=== PATIENT | male | born 1965 | race Caucasian/White ===

== ENCOUNTER 2018-08-27 02:48 | Observation (INO) ==
[2018-08-27] MEDS ORDERED: *HR* FentaNYL (PF) 100 MCG/2 ML VIAL IVP ONE ×2 (02:59→03:22)
[2018-08-27] MEDS ORDERED: Ondansetron 4 MG/2 ML VIAL IVP ONE (03:23)
--- NOTE | 2018-08-27 03:39 | Emergency Department Note ---
Disposition Clinical Impression: Abdominal pain Qualifiers: Abdominal location: lower abdomen, unspecified Qualified Code(s): R10.30 - Lower abdominal pain, unspecified Disposition: Home, Self-Care Condition: Good Referrals: NONE,PCP [Primary Care Provider] - Forms: ED Satisfaction Letter, Work/School Release Time of Disposition: 06:50 General Adult HPI - General Stated complaint: abd pain Time Seen by Provider: 08/27/18 02:56 Source: patient Limitations: no limitations Nursing Notes Reviewed: Yes Vital Signs Reviewed: Yes - History of Present Illness HPI Narrative: 53-year-old male presents with concern abdominal pain, followed by cp and sob. He mentions he has been having some worsening of his chronic abdominal pain. He states he has not had a bowel movement since yesterday. As he was on the toilet trying to have a bowel movement when he started to have some shortness of breath and chest pain which prompted him to call the squad to come to the emergency department. He does describe having a bowel obstruction in the past followed by having an NG tube. Does mention that he has been nauseous and has been dry heaving denies any vomiting. He denies any fever, recent illness, urinary symptoms. Pain Scale: 10 - Related Data Home Medications Medication Instructions Recorded Confirmed Gabapentin [Neurontin] 600 mg PO BID PRN 08/27/18 08/27/18 Tamsulosin HCl [Flomax] 0.4 mg PO DAILY 08/27/18 08/27/18 Valsartan [Diovan] 160 mg PO DAILY 08/27/18 08/27/18 Allergies Allergy/AdvReac Type Severity Reaction Status Date / Time morphine Allergy See Verified 08/27/18 03:08 Comments Penicillins Allergy Swelling Verified 08/27/18 03:08 of Lip/Tongue/Throat All systems ED: reviewed and negative except as stated. Review of Systems: As Per HPI Constitutional: Denies: fever, chills Eyes: Denies: vision change ENT ED: Denies: throat pain Cardiovascular: Reports: as per HPI Respiratory: Denies: cough Gastrointestinal: Reports: as per HPI. Denies: melena Genitourinary: Denies: dysuria Musculoskeletal: Denies: back pain Integumentary: Denies: rash Neurological: Denies: headache Endocrine: Denies: fatigue Hematological/Lymphatic: Denies: easy bleeding Allergic/Immunologic: Denies: facial swelling Past Medical History - Past Medical History Medical history: Reports: hypertension - Social History Smoking Status: Never smoker Alcohol use: Reports: none Drug use: Reports: none Physical Exam - General Limitations: no limitations General appearance: alert, in no apparent distress - Head Head exam: atraumatic, normocephalic - Eye Eye exam: Present: normal appearance, EOMI - ENT ENT exam: mucous membranes moist - Neck Neck exam: Present: normal inspection, full ROM - Chest Chest inspection: Present: normal inspection, symmetric chest wall rise - Respiratory Respiratory exam: Present: normal lung sounds bilaterally. Absent: respiratory distress, wheezes - Cardiovascular Cardiovascular exam: Present: regular rate, normal rhythm - Abdominal Exam Abdominal exam: Present: soft, tenderness Abdominal tenderness: Present: diffuse - Extremities Exam Extremities exam: Present: full ROM - Back Exam Back exam: Present: full ROM - Neurological Exam Neurological exam: Present: alert - Psychiatric Psychiatric exam: Present: normal affect, normal mood - Skin Skin exam: Present: warm, dry, intact, normal color. Absent: rash, cyanosis, diaphoresis Course Course Narrative: Patient is a 53-year-old male presented via squad with complaint of abdominal pain. He mentions he has not had a bowel movement and had been attempting to have one at home when he became short of breath and had some chest pain which prompted his his called the squad. Patient seen and examined. he does have some diffuse lower abdominal pain. He did receive aspirin via squad. [place] pain and chest pain workup ordered. Analgesics ordered. - Reevaluation(s) Reevaluation #1: Patient had normal EKG chest x-ray, troponin. CT scan unremarkable. Her repeat examination, he feels his chest pain is improved he is not short of breath. However his lower abdominal pain has persisted. He did receive Maris followed by Gabby states he had no improvement in his pain. Patient was discussed with attending Dr. Zheng also consistent with patient. We will attempt to have Fleet Enema, and discussed strategies to help with bowel movement. He do feel he can be discharged to home. At this time is in my shift. At this time patient will be transferred over to day shift provider Damaris Guzman PA-C. See her documentation for details and final disposition of this patient. Time: 06:50 Vital Signs Temperature 99.0 F 08/27/18 02:56 Pulse Rate 67 08/27/18 02:56 Respiratory Rate 20 08/27/18 02:56 Blood Pressure 168/105 08/27/18 02:56 O2 Sat by Pulse Oximetry 100 08/27/18 02:56 Temperature 99.0 F 08/27/18 02:56 Pulse Rate 78 08/27/18 04:36 Respiratory Rate 20 08/27/18 04:36 Blood Pressure 154/97 08/27/18 04:36 O2 Sat by Pulse Oximetry 100 08/27/18 04:36 Oxygen Delivery Oxygen Delivery Room Air Medical Decision Making - Lab Data Result diagrams: 08/27/18 03:45 08/27/18 03:45 Lab Results 08/27/18 08/27/18 08/27/18 Range/Units 03:45 03:45 03:45 WBC 9.2 (4.3-11.1) K/mcL RBC 5.04 (4.19-5.50) M/mcL Hgb 14.6 (12.9-16.9) g/dL Hct 41.8 (37.5-50.1) % MCV 82.9 L (83.0-100.0) fL MCH 29.0 (28.0-33.3) pg MCHC 34.9 (31.6-35.5) g/dL RDW 11.9 (11.5-14.5) % Plt Count 354 (140-400) K/mcL MPV 9.4 (9.4-12.4) fL Immature Gran % 0.3 (0-4) % Seg Neutrophils % 79.9 % Lymphocytes % 13.5 % Monocytes % 5.5 % Eosinophils % 0.0 % Basophils % 0.8 % Neutrophils # 7.4 (1.6-8.9) K/mcL Lymphocytes # 1.2 (0.6-4.6) K/mcL Monocytes # 0.5 (0.0-1.3) K/mcL Eosinophils # 0.0 (0.0-0.6) K/mcL Basophils # 0.1 (0.0-0.2) K/mcL Sodium (136-145) mEq/L Potassium (3.5-5.1) mEq/L Chloride (98-107) mEq/L Carbon Dioxide (23-29) mEq/L BUN (6-20) mg/dL Creatinine (0.70-1.30) mg/dL Est GFR ( Amer) (> 60) Est GFR (Non-Af Amer) (> 60) BUN/Creatinine Ratio (6-26) Glucose (70-105) mg/dL Calculated Osmolality (280-300) Calcium (8.6-10.3) mg/dL Total Bilirubin 0.9 (0.3-1.0) mg/dL Direct Bilirubin 0.2 (0.0-0.2) mg/dL Indirect Bilirubin 0.7 (0.0-1.2) mg/dL AST 17 (13-39) Units/L ALT 24 (7-52) Units/L Alkaline Phosphatase 76 (34-104) Units/L Troponin I (< 0.04) ng/mL Serum Total Protein 7.8 (6.4-8.9) g/dL Albumin 4.8 (3.5-5.7) g/dL Globulin 3.0 (2.4-3.5) g/dL Albumin/Globulin Ratio 1.6 (1.1-2.2) Lipase 14 (11-82) Units/L 08/27/18 Range/Units 03:45 WBC (4.3-11.1) K/mcL RBC (4.19-5.50) M/mcL Hgb (12.9-16.9) g/dL Hct (37.5-50.1) % MCV (83.0-100.0) fL MCH (28.0-33.3) pg MCHC (31.6-35.5) g/dL RDW (11.5-14.5) % Plt Count (140-400) K/mcL MPV (9.4-12.4) fL Immature Gran % (0-4) % Seg Neutrophils % % Lymphocytes % % Monocytes % % Eosinophils % % Basophils % % Neutrophils # (1.6-8.9) K/mcL Lymphocytes # (0.6-4.6) K/mcL Monocytes # (0.0-1.3) K/mcL Eosinophils # (0.0-0.6) K/mcL Basophils # (0.0-0.2) K/mcL Sodium 140 (136-145) mEq/L Potassium 3.4 L (3.5-5.1) mEq/L Chloride 104 (98-107) mEq/L Carbon Dioxide 19 L (23-29) mEq/L BUN 15 (6-20) mg/dL Creatinine 1.07 (0.70-1.30) mg/dL Est GFR ( Amer) > 60 (> 60) Est GFR (Non-Af Amer) > 60 (> 60) BUN/Creatinine Ratio 14 (6-26) Glucose 109 H (70-105) mg/dL Calculated Osmolality 291 (280-300) Calcium 10.5 H (8.6-10.3) mg/dL Total Bilirubin (0.3-1.0) mg/dL Direct Bilirubin (0.0-0.2) mg/dL Indirect Bilirubin (0.0-1.2) mg/dL AST (13-39) Units/L ALT (7-52) Units/L Alkaline Phosphatase (34-104) Units/L Troponin I < 0.03 (< 0.04) ng/mL Serum Total Protein (6.4-8.9) g/dL Albumin (3.5-5.7) g/dL Globulin (2.4-3.5) g/dL Albumin/Globulin Ratio (1.1-2.2) Lipase (11-82) Units/L - Radiology Data Radiology results reviewed: Yes I reviewed the patient's radiology results. - EKG Data EKG #1 EKG attestation: Yes I reviewed and interpreted this EKG. EKG shows normal: sinus rhythm Rhythm: NSR [place]/QRS: normal Interpretation: nonspecific ST-T wave changes (in anterior leads)
[2018-08-27 03:56] LABS: Basophils # 0.1 K/mcL (0.0-0.2); Basophils % 0.8 %; Hematocrit 41.8 % (37.5-50.1); Hemoglobin 14.6 g/dL (12.9-16.9); Immature Granulocytes % 0.3 % (0-4); Lymphocytes # 1.2 K/mcL (0.6-4.6); Lymphocytes % 13.5 %; Mean Corpuscular HGB Conc 34.9 g/dL (31.6-35.5); Mean Corpuscular Volume 82.9 fL (83.0-100.0); Mean Platelet Volume 9.4 fL (9.4-12.4); Monocytes # 0.5 K/mcL (0.0-1.3); Monocytes % 5.5 %; Neutrophils # 7.4 K/mcL (1.6-8.9); Platelet Count 354 K/mcL (140-400); Red Blood Count 5.04 M/mcL (4.19-5.50); Red Cell Distribution Width 11.9 % (11.5-14.5); Segmented Neutrophils % 79.9 %; White Blood Count 9.2 K/mcL (4.3-11.1)
[2018-08-27 04:17] LABS: Albumin 4.8 g/dL (3.5-5.7); Albumin/Globulin Ratio 1.6 (1.1-2.2); Bilirubin,Direct 0.2 mg/dL (0.0-0.2); Bilirubin,Indirect 0.7 mg/dL (0.0-1.2); Bilirubin,Total 0.9 mg/dL (0.3-1.0); Total Protein 7.8 g/dL (6.4-8.9)
[2018-08-27] MEDS ORDERED: Isovue-370 500 ML BOTTLE IVP ONE (04:17)
[2018-08-27 04:18] LABS: BUN/Creatinine Ratio 14 (6-26); Blood Urea Nitrogen 15 mg/dL (6-20); Calcium 10.5 mg/dL (8.6-10.3); Carbon Dioxide 19 mEq/L (23-29); Chloride 104 mEq/L (98-107); Glucose 109 mg/dL (70-105); Osmolality,Calculated 291 (280-300); Potassium 3.4 mEq/L (3.5-5.1); Sodium 140 mEq/L (136-145); eGFR For African Americans > 60 (> 60); eGFR For Non-African Americans > 60 (> 60)
[2018-08-27 04:19] LABS: Troponin I < 0.03 ng/mL (< 0.04)
[2018-08-27] MEDS ORDERED: *HR* HYDROmorphone (PF) 1 MG/ML SYRINGE IVP ONE (04:19)
--- NOTE | 2018-08-27 05:24 | Emergency Department Note ---
Disposition Clinical Impression: Abdominal pain Qualifiers: Abdominal location: lower abdomen, unspecified Qualified Code(s): R10.30 - Lower abdominal pain, unspecified Disposition: Admitted As Inpatient Condition: Good Referrals: NONE,PCP [Primary Care Provider] - Forms: ED Satisfaction Letter, Work/School Release Time of Disposition: 07:43 General Adult HPI - General Chief complaint: ED Abdominal Pain Stated complaint: abd pain Time Seen by Provider: 08/27/18 02:56 Source: patient Limitations: no limitations Nursing Notes Reviewed: Yes Vital Signs Reviewed: Yes - History of Present Illness Pain Scale: 10 - Related Data Home Medications Medication Instructions Recorded Confirmed Gabapentin [Neurontin] 600 mg PO BID PRN 08/27/18 08/27/18 Tamsulosin HCl [Flomax] 0.4 mg PO DAILY 08/27/18 08/27/18 Valsartan [Diovan] 160 mg PO DAILY 08/27/18 08/27/18 Allergies Allergy/AdvReac Type Severity Reaction Status Date / Time morphine Allergy See Verified 08/27/18 03:08 Comments Penicillins Allergy Swelling Verified 08/27/18 03:08 of Lip/Tongue/Throat Constitutional: Denies: fever, chills Eyes: Denies: vision change ENT ED: Denies: throat pain Cardiovascular: Reports: as per HPI Respiratory: Denies: cough Gastrointestinal: Reports: as per HPI. Denies: melena Genitourinary: Denies: dysuria Musculoskeletal: Denies: back pain Integumentary: Denies: rash Neurological: Denies: headache Endocrine: Denies: fatigue Hematological/Lymphatic: Denies: easy bleeding Allergic/Immunologic: Denies: facial swelling Past Medical History - Past Medical History Medical history: Reports: hypertension - Social History Smoking Status: Never smoker Alcohol use: Reports: none Drug use: Reports: none Physical Exam - General Limitations: no limitations General appearance: alert, in no apparent distress Course Vital Signs Temperature 99.0 F 08/27/18 02:56 Pulse Rate 67 08/27/18 02:56 Respiratory Rate 20 08/27/18 02:56 Blood Pressure 168/105 08/27/18 02:56 O2 Sat by Pulse Oximetry 100 08/27/18 02:56 Temperature 99.0 F 08/27/18 02:56 Pulse Rate 72 08/27/18 06:49 Respiratory Rate 20 08/27/18 06:49 Blood Pressure 155/103 08/27/18 06:49 O2 Sat by Pulse Oximetry 100 08/27/18 06:49 Oxygen Delivery Oxygen Delivery Room Air Medical Decision Making - Lab Data Lab results reviewed: Yes I reviewed the patient's lab results. Result diagrams: 08/27/18 03:45 08/27/18 03:45 Lab Results 08/27/18 08/27/18 08/27/18 Range/Units 03:45 03:45 03:45 WBC 9.2 (4.3-11.1) K/mcL RBC 5.04 (4.19-5.50) M/mcL Hgb 14.6 (12.9-16.9) g/dL Hct 41.8 (37.5-50.1) % MCV 82.9 L (83.0-100.0) fL MCH 29.0 (28.0-33.3) pg MCHC 34.9 (31.6-35.5) g/dL RDW 11.9 (11.5-14.5) % Plt Count 354 (140-400) K/mcL MPV 9.4 (9.4-12.4) fL Immature Gran % 0.3 (0-4) % Seg Neutrophils % 79.9 % Lymphocytes % 13.5 % Monocytes % 5.5 % Eosinophils % 0.0 % Basophils % 0.8 % Neutrophils # 7.4 (1.6-8.9) K/mcL Lymphocytes # 1.2 (0.6-4.6) K/mcL Monocytes # 0.5 (0.0-1.3) K/mcL Eosinophils # 0.0 (0.0-0.6) K/mcL Basophils # 0.1 (0.0-0.2) K/mcL Sodium (136-145) mEq/L Potassium (3.5-5.1) mEq/L Chloride (98-107) mEq/L Carbon Dioxide (23-29) mEq/L BUN (6-20) mg/dL Creatinine (0.70-1.30) mg/dL Est GFR ( Amer) (> 60) Est GFR (Non-Af Amer) (> 60) BUN/Creatinine Ratio (6-26) Glucose (70-105) mg/dL Calculated Osmolality (280-300) Calcium (8.6-10.3) mg/dL Total Bilirubin 0.9 (0.3-1.0) mg/dL Direct Bilirubin 0.2 (0.0-0.2) mg/dL Indirect Bilirubin 0.7 (0.0-1.2) mg/dL AST 17 (13-39) Units/L ALT 24 (7-52) Units/L Alkaline Phosphatase 76 (34-104) Units/L Troponin I (< 0.04) ng/mL Serum Total Protein 7.8 (6.4-8.9) g/dL Albumin 4.8 (3.5-5.7) g/dL Globulin 3.0 (2.4-3.5) g/dL Albumin/Globulin Ratio 1.6 (1.1-2.2) Lipase 14 (11-82) Units/L // Range/Units 03:45 WBC (4.3-11.1) K/mcL RBC (4.19-5.50) M/mcL Hgb (12.9-16.9) g/dL Hct (37.5-50.1) % MCV (83.0-100.0) fL MCH (28.0-33.3) pg MCHC (31.6-35.5) g/dL RDW (11.5-14.5) % Plt Count (140-400) K/mcL MPV (9.4-12.4) fL Immature Gran % (0-4) % Seg Neutrophils % % Lymphocytes % % Monocytes % % Eosinophils % % Basophils % % Neutrophils # (1.6-8.9) K/mcL Lymphocytes # (0.6-4.6) K/mcL Monocytes # (0.0-1.3) K/mcL Eosinophils # (0.0-0.6) K/mcL Basophils # (0.0-0.2) K/mcL Sodium 140 (136-145) mEq/L Potassium 3.4 L (3.5-5.1) mEq/L Chloride 104 (98-107) mEq/L Carbon Dioxide 19 L (23-29) mEq/L BUN 15 (6-20) mg/dL Creatinine 1.07 (0.70-1.30) mg/dL Est GFR ( Amer) > 60 (> 60) Est GFR (Non-Af Amer) > 60 (> 60) BUN/Creatinine Ratio 14 (6-26) Glucose 109 H (70-105) mg/dL Calculated Osmolality 291 (280-300) Calcium 10.5 H (8.6-10.3) mg/dL Total Bilirubin (0.3-1.0) mg/dL Direct Bilirubin (0.0-0.2) mg/dL Indirect Bilirubin (0.0-1.2) mg/dL AST (13-39) Units/L ALT (7-52) Units/L Alkaline Phosphatase (34-104) Units/L Troponin I < 0.03 (< 0.04) ng/mL Serum Total Protein (6.4-8.9) g/dL Albumin (3.5-5.7) g/dL Globulin (2.4-3.5) g/dL Albumin/Globulin Ratio (1.1-2.2) Lipase (11-82) Units/L - Radiology Data Radiology results reviewed: Yes I reviewed the patient's radiology results. Chest X-Ray 08/27/18 02:57 IMPRESSION: No acute cardiopulmonary abnormality. D/ / Elie Thomas MD / Elie Thomas MD Interpreting Provider: Elie Thomas MD Abdomen/Pelvis CT 08/27/18 04:17 IMPRESSION: Diverticulosis without scan evidence for diverticulitis or other acute process. D/ / Garry Dotson MD / Garry Dotson MD Interpreting Provider: Garry Dotson MD - EKG Data EKG #1 EKG attestation: Yes I reviewed and interpreted this EKG. EKG results narrative: EKG shows normal sinus rhythm with sinus arrhythmia. Ventricular rate of 68. No significant ST segment elevation or depression. Attestation Statement - Attestation Attestation: I, Gregory Zheng MD, personally evaluated this patient and discussed their m anagement with the midlevel provicer, PAC/AIR [employer] SPECIALIST SUPERVISOR. I reviewed the midlevel provider's note and agree with the documented findings, medical decision making, and plan of care. 53-year-old male presents to the emergency department with a complaint of lower abdominal pain and unable to have a bowel movement for about 12 hours prior to arrival. Patient had a normal bowel movement Monday. Patient states he just feels like he needs to go and nothing will come out. He states he has not even been passing gas. He does have a history of a bowel obstruction in the past. On examination patient is a well-developed well-nourished well-appearing male in no acute distress. He is alert and oriented 3. There is no cyanosis or diaphoresis. Patient does appear to be in moderate discomfort. Breath sounds are clear and equal bilaterally. Heart regular rate and rhythm. Abdomen is soft with normal bowel sounds. There is moderate diffuse lower abdominal tenderness, worse in the left lower quadrant. EKG shows normal sinus rhythm with sinus arrhythmia. Ventricular rate of 68. No significant ST segment elevation or depression. Labs reviewed and unremarkable. Chest x-ray negative. CT of the abdomen and pelvis showed diverticulosis with no evidence of diverticulitis or other acute intra-abdominal abnormality. Patient continued to have persistent abdominal pain despite multiple doses of pain medications. At morning shift change patient is signed out to the [employer] REVA, Damaris Guzman. Plan is to consult the hospitalist for admission for intractable abdominal pain.
[2018-08-27] MEDS ORDERED: Dicyclomine 20 MG/2 ML AMPUL IM ONE (08:11)
--- NOTE | 2018-08-27 09:29 | Emergency Department Note ---
Disposition Clinical Impression: Abdominal pain Qualifiers: Abdominal location: left lower quadrant Qualified Code(s): R10.32 - Left lower quadrant pain Disposition: Admitted As Inpatient Condition: Good Time of Disposition: 09:48 General Adult HPI - General Chief complaint: ED Abdominal Pain Stated complaint: abd pain Time Seen by Provider: 08/27/18 02:56 Source: patient Mode of arrival: private vehicle Limitations: no limitations Nursing Notes Reviewed: Yes Vital Signs Reviewed: Yes - History of Present Illness HPI Narrative: Elie is a pleasant 53-year-old male. Patient was assigned to me on signout from outgoing REVA Ford Lee and Dr. Zheng also manage the patient. Patient was presented to me with abdominal pain with a history of a small bowel obstruction. Patient has had multiple doses of fentanyl which has not helped uses pain. My evaluation included an elevated lactic acid. Enema did not produce significant bowel movements. Patient was also given Bentyl IM in the emergency room which she said did help his pain a little bit. Location: abdomen Pain Scale: 10 Quality: aching - Related Data Home Medications Medication Instructions Recorded Confirmed Armodafinil 250 mg PO QAM 08/27/18 08/27/18 Atorvastatin Calcium [Lipitor] 20 mg PO DAILY 08/27/18 08/27/18 Gabapentin [Neurontin] 600 mg PO QID 08/27/18 08/27/18 Omeprazole [PriLOSEC] 40 mg PO DAILY 08/27/18 08/27/18 Quetiapine Fumarate 400 mg PO HS PRN 08/27/18 08/27/18 Tamsulosin HCl [Flomax] 0.4 mg PO DAILY 08/27/18 08/27/18 Testosterone Cypionate 150 mg IM FR 08/27/18 08/27/18 [Depo-Testosterone] Valsartan/Hydrochlorothiazide 1 tab PO DAILY 08/27/18 08/27/18 [Diovan Hct 320-25 mg Tablet] raNITIdine HCl [Zantac] 150 mg PO BID PRN 08/27/18 08/27/18 Allergies Allergy/AdvReac Type Severity Reaction Status Date / Time morphine Allergy See Verified 08/27/18 03:08 Comments Penicillins Allergy Swelling Verified 08/27/18 03:08 of Lip/Tongue/Throat All systems ED: reviewed and negative except as stated. Review of Systems: As Per HPI Constitutional: Denies: fever, chills Eyes: Denies: vision change ENT ED: Denies: throat pain Cardiovascular: Reports: as per HPI Respiratory: Denies: cough Gastrointestinal: Reports: as per HPI. Denies: melena Genitourinary: Denies: dysuria Musculoskeletal: Denies: back pain Integumentary: Denies: rash Neurological: Denies: headache Endocrine: Denies: fatigue Hematological/Lymphatic: Denies: easy bleeding Allergic/Immunologic: Denies: facial swelling Past Medical History - Past Medical History Medical history: Reports: hypertension - Social History Smoking Status: Never smoker Alcohol use: Reports: none Drug use: Reports: none Physical Exam localized tenderness, not controlled with multiple doses of fentanyl in the ED. Patient states that he has had a diagnosis of SBO in the past that was initially negative on CT scdan. - General Limitations: no limitations General appearance: alert, in distress (Mild distress) - Eye Eye exam: Present: normal appearance - ENT ENT exam: normal exam, normal oropharynx - Chest Chest inspection: Present: normal inspection, symmetric chest wall rise - Respiratory Respiratory exam: Present: normal lung sounds bilaterally - Abdominal Exam Abdominal exam: Present: tenderness (Tenderness is localized left lower quadrant. Current time there is a mild amount of guarding with no distention.), normal bowel sounds - Extremities Exam Extremities exam: Present: normal inspection - Expanded Lower Extremity Exam Hip/Pelvis exam: Present: normal inspection Lower leg exam: Present: normal inspection Neurovascular/Tendon exam: Present: normal capillary refill - Neurological Exam Neurological exam: Present: alert, oriented X3 Course Course Narrative: He was given multiple rounds of pain control. Urinalysis is not been resulted yet will admit for pain control for intractable abdominal pain and elevated lactate. Patient is given IV fluids. It is noted that his potassium is low in the ED magnesium was ordered. Patient states that he has a history of small bowel obstruction and even though there is no visible step small bowel obstruction present on CT he says that this is similar to his previous episode and states that he initially had negative CT scans. Vital Signs Temperature 99.0 F 08/27/18 02:56 Pulse Rate 67 08/27/18 02:56 Respiratory Rate 20 08/27/18 02:56 Blood Pressure 168/105 08/27/18 02:56 O2 Sat by Pulse Oximetry 100 08/27/18 02:56 Temperature 98.0 F 08/28/18 12:12 Pulse Rate 74 08/28/18 12:12 Respiratory Rate 17 08/28/18 12:12 Blood Pressure 107/72 08/28/18 12:12 O2 Sat by Pulse Oximetry 97 08/28/18 12:12 Oxygen Delivery Oxygen Delivery Room Air Medical Decision Making - MDM Narrative Medical decision making narrative: Hypokalemia, metabolic concerns. Lactic acidosis. early Mesenteric ischemia cannot be excluded at this time. Case discussed with Dr. Donald. - Medical Records Medical records reviewed: Yes I reviewed the patient's medical records. - Lab Data Lab results reviewed: Yes I reviewed the patient's lab results. Result diagrams: 08/27/18 03:45 08/28/18 14:52 Lab Results 08/27/18 08/27/18 08/27/18 Range/Units 03:45 03:45 03:45 WBC 9.2 (4.3-11.1) K/mcL RBC 5.04 (4.19-5.50) M/mcL Hgb 14.6 (12.9-16.9) g/dL Hct 41.8 (37.5-50.1) % MCV 82.9 L (83.0-100.0) fL MCH 29.0 (28.0-33.3) pg MCHC 34.9 (31.6-35.5) g/dL RDW 11.9 (11.5-14.5) % Plt Count 354 (140-400) K/mcL MPV 9.4 (9.4-12.4) fL Immature Gran % 0.3 (0-4) % Seg Neutrophils % 79.9 % Lymphocytes % 13.5 % Monocytes % 5.5 % Eosinophils % 0.0 % Basophils % 0.8 % Neutrophils # 7.4 (1.6-8.9) K/mcL Lymphocytes # 1.2 (0.6-4.6) K/mcL Monocytes # 0.5 (0.0-1.3) K/mcL Eosinophils # 0.0 (0.0-0.6) K/mcL Basophils # 0.1 (0.0-0.2) K/mcL Sodium (136-145) mEq/L Potassium (3.5-5.1) mEq/L Chloride (98-107) mEq/L Carbon Dioxide (23-29) mEq/L BUN (6-20) mg/dL Creatinine (0.70-1.30) mg/dL Est GFR ( Amer) (> 60) Est GFR (Non-Af Amer) (> 60) BUN/Creatinine Ratio (6-26) Glucose (70-105) mg/dL Calculated Osmolality (280-300) Lactic Acid (0.5-2.2) mmol/L Calcium (8.6-10.3) mg/dL Magnesium (1.6-2.6) mg/dL Total Bilirubin 0.9 (0.3-1.0) mg/dL Direct Bilirubin 0.2 (0.0-0.2) mg/dL Indirect Bilirubin 0.7 (0.0-1.2) mg/dL AST 17 (13-39) Units/L ALT 24 (7-52) Units/L Alkaline Phosphatase 76 (34-104) Units/L Troponin I (< 0.04) ng/mL Serum Total Protein 7.8 (6.4-8.9) g/dL Albumin 4.8 (3.5-5.7) g/dL Globulin 3.0 (2.4-3.5) g/dL Albumin/Globulin Ratio 1.6 (1.1-2.2) Lipase 14 (11-82) Units/L 08/27/18 08/27/18 Range/Units 03:45 07:53 WBC (4.3-11.1) K/mcL RBC (4.19-5.50) M/mcL Hgb (12.9-16.9) g/dL Hct (37.5-50.1) % MCV (83.0-100.0) fL MCH (28.0-33.3) pg MCHC (31.6-35.5) g/dL RDW (11.5-14.5) % Plt Count (140-400) K/mcL MPV (9.4-12.4) fL Immature Gran % (0-4) % Seg Neutrophils % % Lymphocytes % % Monocytes % % Eosinophils % % Basophils % % Neutrophils # (1.6-8.9) K/mcL Lymphocytes # (0.6-4.6) K/mcL Monocytes # (0.0-1.3) K/mcL Eosinophils # (0.0-0.6) K/mcL Basophils # (0.0-0.2) K/mcL Sodium 140 (136-145) mEq/L Potassium 3.4 L (3.5-5.1) mEq/L Chloride 104 (98-107) mEq/L Carbon Dioxide 19 L (23-29) mEq/L BUN 15 (6-20) mg/dL Creatinine 1.07 (0.70-1.30) mg/dL Est GFR ( Amer) > 60 (> 60) Est GFR (Non-Af Amer) > 60 (> 60) BUN/Creatinine Ratio 14 (6-26) Glucose 109 H (70-105) mg/dL Calculated Osmolality 291 (280-300) Lactic Acid 2.9 H (0.5-2.2) mmol/L Calcium 10.5 H (8.6-10.3) mg/dL Magnesium 2.1 (1.6-2.6) mg/dL Total Bilirubin (0.3-1.0) mg/dL Direct Bilirubin (0.0-0.2) mg/dL Indirect Bilirubin (0.0-1.2) mg/dL AST (13-39) Units/L ALT (7-52) Units/L Alkaline Phosphatase (34-104) Units/L Troponin I < 0.03 (< 0.04) ng/mL Serum Total Protein (6.4-8.9) g/dL Albumin (3.5-5.7) g/dL Globulin (2.4-3.5) g/dL Albumin/Globulin Ratio (1.1-2.2) Lipase (11-82) Units/L - Radiology Data Radiology results reviewed: Yes I reviewed the patient's radiology results.
[2018-08-27] MEDS ORDERED: 0.9 % Sodium Chloride 1,000 ML IVC ONE (09:49)
[2018-08-27] MEDS ORDERED: Potassium Effervescent 25 MEQ TABLET.EFF PO ONE (09:49)
[2018-08-27 10:31] LABS: Magnesium 2.1 mg/dL (1.6-2.6)
[2018-08-27] MEDS ORDERED: Naloxone 0.4 MG/ML INJ IVP PRN (10:56)
[2018-08-27] MEDS ORDERED: Acetaminophen 325 MG TABLET PO PRN (10:56)
[2018-08-27] MEDS ORDERED: Ondansetron 4 MG/2 ML VIAL IVP PRN (10:56)
[2018-08-27] MEDS: 0.9 % Sodium Chloride 1,000 ML IVC SCH ×2 (12:07→18:35)
--- NOTE | 2018-08-27 13:57 | Internal Med History&Physical ---
Date of Encounter: 08/27/18 Time of Encounter: 12:25 Internal Medicine - H&P: HPI Chief complaint: LLQ / Left gorin pain Admitted From: Emergency Dept Plans for Post Hospital Care: Home History of present illness: Mr. Vargas is a 53 year old male with a known past medical history of hypertension, BPH and peripheral neuropathy patient presented to ER with chief complaint of lower abdominal pain. Patient stated in the ER he started having his abdominal pains since last couple hours when he was not able to have bowel movement. However when I examined him on the floor here patient stated initially said he has is chronic abdominal pain and T changes the story to has been having this left groin and scrotal pain for almost 2 days. It is continuous pain and relieved with pain medication. He does have nausea and the denied any vomiting. He denied any diarrhea. He had BM on Monday. In the ER his CT of the abdomen and pelvis showed diverticulosis with no evidence of diverticulitis and no acute intra-abdominal abnormality. Past Med Surg Social Fam HX - Past Medical History Medical history: hypertension, other Additional medical history: darnell's esophagus. IBS Psychiatric history: no psych history - Past Surgical History Surgical History: appendectomy, cholecystectomy Additional surgical history: neck sx. shoulder sx. carpal tunnel - Social History Smoking Status: Never smoker Smokeless Tobacco Status: Yes Alcohol use: none Drug use: none - Additional Family History Additional family history: Family hsitory reviewed and non contribuitory to current problem. Internal Medicine - H&P: Meds Armodafinil 250 mg PO QAM 08/27/18 [History] Atorvastatin Calcium [Lipitor] 20 mg PO DAILY 08/27/18 [History] Gabapentin [Neurontin] 600 mg PO BID PRN 08/27/18 [History] Ibuprofen 800 mg PO TID PRN 08/27/18 [History] Omeprazole [PriLOSEC] 40 mg PO DAILY 08/27/18 [History] Quetiapine Fumarate 400 mg PO HS PRN 08/27/18 [History] Tamsulosin HCl [Flomax] 0.4 mg PO DAILY 08/27/18 [History] Testosterone Cypionate [Depo-Testosterone] 150 mg IM FR 08/27/18 [History] Valsartan/Hydrochlorothiazide [Diovan Hct 320-25 mg Tablet] 1 tab PO DAILY 08/27/18 [History] raNITIdine HCl [Zantac] 150 mg PO BID PRN 08/27/18 [History] Allergy/AdvReac Type Severity Reaction Status Date / Time morphine Allergy See Verified 08/27/18 03:08 Comments Penicillins Allergy Swelling Verified 08/27/18 03:08 of Lip/Tongue/Throat All Systems PM: A 10-system review of systems was performed and is negative for pertinent findings except as documented above in the HPI. Review of systems: All the systems are reviewed everything is benign except the systems and symptoms I mentioned in the history of present illness - Constitutional Vitals: Temp Pulse Resp BP Pulse Ox 97.7 F 61 16 167/87 100 08/27/18 11:07 08/27/18 11:07 08/27/18 11:07 08/27/18 11:07 08/27/18 11:07 General appearance: Present: cooperative, mild distress (At times with lower abdominal pain..), A&O X 3, answers questions appropriately Exam: a - Head Head exam: Present: atraumatic, normal inspection - Neck Neck exam general surgery: Present: supple - Respiratory Respiratory exam: Present: decreased breath sounds. Absent: rales, respiratory distress, wheezes - Cardiovascular Cardiovascular exam: Present: RRR, +S1, +S2. Absent: tachycardia - GI/Abdominal GI/Abdominal exam: Present: normal bowel sounds, soft, tenderness (left lower abdomen and left groin region). Absent: rebound, rigid - exam: Present: normal inspection. Absent: scrotal swelling, testicular tenderness - Extremities Exam Extremities exam: Present: normal inspection. Absent: calf tenderness, pedal ed garret, tenderness - Back Exam Back exam: Absent: CVA tenderness (L), CVA tenderness (R) - Neurological Exam Neurological exam: Present: alert, oriented X3 - Psychiatric Psychiatric exam: Present: anxious. Absent: suicidal ideation - Skin Skin exam: Absent: rash Internal Med - H&P Results - Labs CBC & Chem 7: 08/27/18 03:45 08/27/18 03:45 Labs: Short CBC 08/27/18 Range/Units 03:45 WBC 9.2 (4.3-11.1) K/mcL Hgb 14.6 (12.9-16.9) g/dL Hct 41.8 (37.5-50.1) % Plt Count 354 (140-400) K/mcL Neutrophils # 7.4 (1.6-8.9) K/mcL BMP 08/27/18 03:45 Sodium 140 Potassium 3.4 L Chloride 104 Carbon Dioxide 19 L BUN 15 Creatinine 1.07 Glucose 109 H Calcium 10.5 H Cardiac Enzymes 08/27/18 Range/Units 03:45 Troponin I < 0.03 (< 0.04) ng/mL Liver Function 08/27/18 Range/Units 03:45 Total Bilirubin 0.9 (0.3-1.0) mg/dL Direct Bilirubin 0.2 (0.0-0.2) mg/dL AST 17 (13-39) Units/L ALT 24 (7-52) Units/L Alkaline Phosphatase 76 (34-104) Units/L Albumin 4.8 (3.5-5.7) g/dL - Impressions ITS Impressions Chest X-Ray 08/27/18 02:57 IMPRESSION: No acute cardiopulmonary abnormality. D/ / Elie Thomas MD / Elie Thomas MD Interpreting Provider: Elie Thomas MD Abdomen/Pelvis CT 08/27/18 04:17 IMPRESSION: Diverticulosis without scan evidence for diverticulitis or other acute process. D/ / Garry Dotson MD / Garry Dotson MD Interpreting Provider: Garry Dotson MD - Assessment and Plan (1) Abdominal pain Current Visit: Yes Status: Acute Assessment and plan: Place the patient into [facility] for observation unclear etiology for Left lower abdominal pain / groin pain reviewed CT of abdomen and pelvis no acute abnormality noticed started him on IV Toradol as needed continue close monitoring continue symptomatic and supportive care Qualifiers: Abdominal location: left lower quadrant Qualified Code(s): R10.32 - Left lower quadrant pain (2) Left groin pain Current Visit: Yes Status: Acute Assessment and plan: Unclear etiology patient story is not consistent his kept on changing the story every time when we asked about pain reviewed CT scan of the abdomen and pelvis will order ultrasound of scrotum continue monitoring for now (3) Lactic acidosis Current Visit: Yes Status: Acute Assessment and plan: Could be due to dehydration started him on IV hydration trend on lactic acid (4) Hypertension Current Visit: Yes Status: Acute Assessment and plan: Fairly controlled could be due to pain/anxiety resumed home medication will put him on IV hydralazine as needed Qualifiers: Hypertension type: essential hypertension Qualified Code(s): I10 - Essential (primary) hypertension (5) BPH (benign prostatic hyperplasia) Current Visit: Yes Status: Chronic Assessment and plan: Resumed home medication Flomax Qualifiers: Lower urinary tract symptom presence: symptoms absent Qualified Code(s): N40.0 - Benign prostatic hyperplasia without lower urinary tract symptoms - Time Spent With Patient Total time spent is greater than 50% in coordination of care (as documented) at patient's floor/unit and/or counseling patient:
[2018-08-27] MEDS: Ketorolac 15 MG/ML VIAL IVP PRN (17:55)
[2018-08-27] MEDS: Gabapentin 300 MG CAPSULE PO SCH ×2 (18:32→21:52)
[2018-08-28] MEDS: Ketorolac 15 MG/ML VIAL IVP PRN (00:09)
[2018-08-28 03:16] LABS: Alanine Aminotransferase 21 Units/L (7-52); Albumin 4.1 g/dL (3.5-5.7); Albumin/Globulin Ratio 1.6 (1.1-2.2); Alkaline Phosphatase 62 Units/L (34-104); Aspartate Amino Transferase 20 Units/L (13-39); BUN/Creatinine Ratio 17 (6-26); Bilirubin,Total 0.6 mg/dL (0.3-1.0); Blood Urea Nitrogen 23 mg/dL (6-20); Calcium 8.6 mg/dL (8.6-10.3); Carbon Dioxide 24 mEq/L (23-29); Chloride 105 mEq/L (98-107); Chol/HDL Ratio 3.8 (0-4.9); Cholesterol 129 mg/dL (< 200); Globulin 2.5 g/dL (2.4-3.5); Glucose 105 mg/dL (70-105); HDL Cholesterol 34 mg/dL (40-59); LDL Cholesterol,Calculated 72 mg/dL (0-99); Osmolality,Calculated 294 (280-300); Potassium 2.8 mEq/L (3.5-5.1); Sodium 140 mEq/L (136-145); Total Protein 6.6 g/dL (6.4-8.9); Triglycerides 114 mg/dL (< 150); eGFR For African Americans > 60 (> 60); eGFR For Non-African Americans 54 (> 60)
[2018-08-28 08:56] LABS: Bilirubin,Urine Negative (Negative); Blood,Urine Negative (Negative); Clarity,Urine Clear (Clear); Glucose,Urine (UA) Normal (Normal); Ketones,Urine Negative (Negative); Leukocyte Esterase,Urine Negative (Negative); Nitrite,Urine Negative (Negative); Protein,Urine 30 mg/dL (Neg-Trace); Specific Gravity,Urine >= 1.030 (1.010-1.025); Urobilinogen,Urine Normal (Normal)
[2018-08-28 08:59] LABS: Color,Urine Dark Yellow (Yellow)
[2018-08-28] MEDS ORDERED: Valsartan 160 MG TABLET PO SCH (09:00)
[2018-08-28] MEDS ORDERED: 0.9 % Sodium Chloride 1,000 ML IVC SCH (09:00)
[2018-08-28 09:05] LABS: Bacteria,Urine None Seen per hpf (None-Few); Hyaline Casts,Urine None Seen per lpf (None-Few); RBC,Urine 0-3 per hpf (0-3); Squamous Epithelial Cell,Urine Moderate per lpf (None-Few); WBC,Urine 0-3 per hpf (0-3)
[2018-08-28] MEDS: Gabapentin 300 MG CAPSULE PO SCH ×2 (09:23→13:33)
--- NOTE | 2018-08-28 11:10 | Discharge Summary ---
- NOTES TO OUTPATIENT PROVIDER Notes to Outpatient Provider: Follow up with PCP in one week. Drink plenty of fluids. Please go for f/u labs in 2 days. Orders not resulted at time of discharge: Pending orders 08/28/18 15:00 Basic Metabolic Panel Routine CK [Creatine Kinase] Routine Date of Encounter: 08/28/18 Time of Encounter: 11:08 - Discharge Diagnosis (1) Abdominal pain Priority: Primary Status: Acute Qualifiers: Abdominal location: left lower quadrant Qualified Code(s): R10.32 - Left lower quadrant pain (2) Left groin pain Priority: Primary Status: Acute (3) Lactic acidosis Priority: Primary Status: Acute (4) Hypertension Priority: Secondary Status: Acute Qualifiers: Hypertension type: essential hypertension Qualified Code(s): I10 - Essential (primary) hypertension (5) BPH (benign prostatic hyperplasia) Priority: Secondary Status: Chronic Qualifiers: Lower urinary tract symptom presence: symptoms absent Qualified Code(s): N40.0 - Benign prostatic hyperplasia without lower urinary tract symptoms (6) Rhabdomyolysis Priority: Secondary Status: Acute Qualifiers: Rhabdomyolysis type: non-traumatic Qualified Code(s): M62.82 - Rhabdomyolysis (7) GLENNY (acute kidney injury) Priority: Secondary Status: Acute Hospital course: Mr. Vargas is a 53 year old male with a known past medical history of hypertension, BPH and peripheral neuropathy patient presented to ER with chief complaint of lower abdominal pain. Patient stated in the ER he started having his abdominal pains since last couple hours when he was not able to have bowel movement. However when I examined him on the floor here patient stated initially said he has is chronic abdominal pain and T changes the story to has been having this left groin and scrotal pain for almost 2 days. It is continuous pain and relieved with pain medication. He does have nausea and the denied any vomiting. He denied any diarrhea. He had BM on Monday. In the ER his CT of the abdomen and pelvis showed diverticulosis with no evidence of diverticulitis and no acute intra-abdominal abnormality. He was admitted in the hospital started him on IV hydration. He was continued on symptomatic and supportive care. His Scrotal US showed mild nonspecific scrotal wall thickening and no acute abnormalities. His pain improved today. He did have mild GLENNY with Cr @ 1.38 and CK total @ 509. So continued IV hydration. Pt stated he is feeling much better today. So will d/c him home today in stable condition. Recommend to hydrate him self well. - Time Spent with Patient Total time spent providing and/or coordinating discharge services: - Discharge Medications Prescriptions: Continued Tamsulosin HCl [Flomax] 0.4 mg PO DAILY Gabapentin [Neurontin] 600 mg PO QID Armodafinil 250 mg PO QAM Quetiapine Fumarate 400 mg PO HS PRN PRN Reason: Sleep Atorvastatin Calcium [Lipitor] 20 mg PO DAILY Testosterone Cypionate [Depo-Testosterone] 150 mg IM FR Valsartan/Hydrochlorothiazide [Diovan Hct 320-25 mg Tablet] 1 tab PO DAILY Omeprazole [PriLOSEC] 40 mg PO DAILY raNITIdine HCl [Zantac] 150 mg PO BID PRN PRN Reason: Heartburn Discontinued Ibuprofen 800 mg PO TID PRN PRN Reason: Pain Home Medications: Armodafinil 250 mg PO QAM 08/27/18 [History] Atorvastatin Calcium [Lipitor] 20 mg PO DAILY 08/27/18 [History] Gabapentin [Neurontin] 600 mg PO QID 08/27/18 [History] Omeprazole [PriLOSEC] 40 mg PO DAILY 08/27/18 [History] Quetiapine Fumarate 400 mg PO HS PRN 08/27/18 [History] Tamsulosin HCl [Flomax] 0.4 mg PO DAILY 08/27/18 [History] Testosterone Cypionate [Depo-Testosterone] 150 mg IM FR 08/27/18 [History] Valsartan/Hydrochlorothiazide [Diovan Hct 320-25 mg Tablet] 1 tab PO DAILY 08/27/18 [History] raNITIdine HCl [Zantac] 150 mg PO BID PRN 08/27/18 [History] Allergies/Adverse Reactions: Allergy/AdvReac Type Severity Reaction Status Date / Time morphine Allergy See Verified 08/27/18 03:08 Comments Penicillins Allergy Swelling Verified 08/27/18 03:08 of Lip/Tongue/Throat Date of admission: 08/27/18 09:43 Primary care physician: PCP NONE - Constitutional Vitals: Temp Pulse Resp BP Pulse Ox 97.9 F 86 17 100/41 96 08/28/18 08:21 08/28/18 08:21 08/28/18 08:21 08/28/18 08:21 08/28/18 08:21 General appearance: Present: cooperative, A&O X 3, answers questions appropriately Exam: Gen: Alert, awake, Oriented to time,place and person Chest: Diminished breath sounds B/L, No wheezing, No crackles, No rales Heart: S1S2+ RRR No murmurs Abd: Soft, NT, BS +, No organomegaly Ext: No edema, pulses are palpable, No calf tenderness Neuro : No acute focal neuro deficits noticed Skin: No rash. - Patient Status Disposition: Home, Self-Care Condition: Good Overall status at discharge: patient is back to baseline - Ambulatory Orders Ambulatory Orders: Basic Metabolic Panel [CHEM] Time Frame: 2 Days, Facility: [facility], Location: Lab Creatine Kinase [CHEM] Time Frame: 2 Days, Facility: [facility], Location: Lab - Discharge Instructions Instructions: Acute Kidney Injury (DC), Rhabdomyolysis (DC) Follow Up With: Guerrero Bedolla MD [Non-Partnered Physician] - 09/04/18 1:30 pm Additional Instructions: Follow-up appointments: If there is not an appointment listed below, please call your physician and schedule a follow-up appointment. If you have congestive heart failure and your symptoms return, make an appointment with your physician. Medication List: Carry an up to date list of medications you are taking at all time. We have given you an updated medication list including any new medications that you have been prescribed. Please provide that list to your primary provider Symptoms: If your condition changes or you experience any of the following symptoms, notify your physician immediately: Unusual or worsening pain, fever, persistent nausea and vomiting, bleeding, increase in swelling (especially in your legs), sudden weight gain, extreme dizziness, chest pain, increased drainage or redness from a wound or incision. Go to the emergency department if you experience a problem with breathing. Weights: If you have a history of swelling or shortness of breath, weigh yourself daily and notify your physician if you have a weight gain of two or more pounds in one day or 5 or more pounds in a week. If you experience any of the warning signs for stroke: Sudden numbness or weakness of the face, arm or leg; especially on one side of the body, sudden confusion, trouble speaking or understanding, sudden trouble seeing in one or both eyes, sudden trouble walking, dizziness, loss of balance or coordination, sudden sever headache with no cause; Call 911 or go to the emergency room. Stroke is a medical emergency. Some risk factors for stroke: Age, cigarette smoking, diabetes, excessive alcohol consumption, family history, high blood pressure, overweight, physical inactivity, prior stroke, heart attack, diagnosis of carotid artery stenosis or other artery disease. If you smoke, STOP: Smoking or tobacco use significantly increases your risk of heart and lung disease. Your chance of disease greatly increases if you continue to smoke. For more information, call the [place] tobacco quit line for smoking cessation 7-694-TSCC-NOW ( ) - Diet and Activity Activity: increase activity as tolerated Diet: low salt diet
[2018-08-28 12:13] VITALS: BP 107/72
[2018-08-28 16:05] LABS: BUN/Creatinine Ratio 18 (6-26); Blood Urea Nitrogen 24 mg/dL (6-20); Calcium 8.5 mg/dL (8.6-10.3); Carbon Dioxide 25 mEq/L (23-29); Chloride 108 mEq/L (98-107); Creatine Kinase 457 Units/L (30-223); Glucose 110 mg/dL (70-105); Osmolality,Calculated 297 (280-300); Potassium 4.3 mEq/L (3.5-5.1); Sodium 141 mEq/L (136-145); eGFR For African Americans > 60 (> 60); eGFR For Non-African Americans 58 (> 60)
--- NOTE | 2018-08-29 12:29 | Electrocardiograph Report ---
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
== END 2018-08-28 17:15 | disposition home or self-care (01) ==
LOC: 3BNU 02:48 → EMEROOARM 02:48 → SUATTDRO 09:43 → 3BNU 10:25
PROVIDERS: ADMIT Internal Medicine Nephrology; ATTEND Family Medicine